=== PATIENT | female | born 1985 ===

== ENCOUNTER → 2018-06-22 12:48 | Outpatient (CLI) | payer OTHER, SELFPAY ==
--- NOTE | 2018-06-22 | DI.MRI.S_ITS ---
PROCEDURE: MR HIP RT WO CON INDICATIONS: Right Hip Pain TECHNIQUE: Noncontrast coronal T1 spin echo and STIR through the bony pelvis. Coronal and axial T2 fast spin echo with fat saturation, sagittal T1 spin echo, and oblique axial T2 fast spin echo with fat saturation through the hip. COMPARISON: None. FINDINGS: Image quality: Excellent. Bones and joints: Bone marrow of the pelvic ring and proximal femurs show normal signal throughout. No intraosseous lesions or fractures. No avascular necrosis of the femoral heads. The visualized lower lumbar spine appears normally aligned. Tendons and ligaments: The gluteus medius and minimus tendons appear intact, although there is mild insertional tendinopathy primarily involving the gluteus medius tendon. There is minimal trochanteric bursal fluid The nearby proximal iliotibial band also appears intact. The iliopsoas tendon appears intact, without adjacent bursal fluid collections or evidence for impingement syndrome. The origin of the hamstring tendon is intact at the ischial tuberosity, as well as the associated sacrotuberous ligament. The straight and reflected heads of the rectus femoris muscle origin appear intact, as well as the conjoint tendon. The ligamentum teres appears intact where visualized. Labrum and cartilage: The acetabular labrum appears intact in the absence of intra-articular contrast. Cartilage surface of the femoral head appears of normal thickness. The alpha angle of the femur is within normal limits at less than 55 degrees. Soft tissues: Visualized muscles demonstrate normal bulk and internal signal. Quadratus femoris muscle demonstrates no internal edema to suggest ischiofemoral impingement. The proximal sciatic neurovascular bundle appears normal adjacent to the hamstring tendons. No free pelvic fluid. Bladder wall thickness is normal. Genitourinary structures and bowel loops appear normal where visualized. IMPRESSION: Mild right hip abductor insertional tendinopathy primarily involving the gluteus medius tendon. Minimal adjacent trochanteric bursal fluid. Dictated by: Yong Valentino M.D. on 06/24/2018 at 8:54 Approved by: Yong Valentino M.D. on 06/24/2018 at 9:00
== END ==
PROVIDERS: Visit Provider Family Medicine
DX: M25.551 Pain in right hip (principal); M67.951 Unspecified disorder of synovium and tendon, right thigh
CPT/HCPCS: 73721